=== PATIENT | female | born 1960 | race Two or more races ===

== ENCOUNTER 2020-08-01 17:28 | Outpatient (REF) | payer OTHER, SELFPAY ==
--- NOTE | 2020-08-01 | MM_ITS ---
EXAMINATION: MM SCREENING DIGITAL BREAST TOMOSYNTHESIS, BILATERAL CLINICAL INFORMATION: Screening. Asymptomatic. The lifetime risk of breast cancer based on the Tyrer-Cuzick Model is 8%. COMPARISON: Mammography: 02/04/2019, 01/22/2018, 07/11/2016 TECHNIQUE: Digital breast tomosynthesis is performed in both the craniocaudal and mediolateral oblique views along with computer-aided detection (CAD). Synthesized 2D images are generated from the tomosynthesis. FINDINGS: There are scattered areas of fibroglandular density (ACR BI-RADS breast composition Category b). There are no significant masses, abnormal calcifications, or other abnormalities. The axilla and skin contours are unremarkable. There are no significant changes from prior studies. IMPRESSION: No mammographic evidence of malignancy. ASSESSMENT: BI-RADS 1: Negative RECOMMENDATION: Routine annual mammography screening. This patient's information was entered into a reminder system with a target due date for their next mammogram.
== END 2020-08-01 17:29 | disposition home or self-care (01) ==
LOC: HO.MAMMO 17:28
DX: Z12.31 Encounter for screening mammogram for malignant neoplasm of breast (principal)
CPT/HCPCS: 77063; 77067; 78014

== ENCOUNTER 2020-12-28 09:09 | Outpatient (REF) | payer OTHER, SELFPAY ==
[2020-12-28 09:36] LABS: MANUAL DIFF FLAG NO
[2020-12-28 09:41] LABS: Basophils Percent Auto 0.4 % (0-2); Eosinophils Absolute Auto 0.1 X10*3/uL (0.0-0.4); Eosinophils Percent Auto 1.8 % (0-4); Hematocrit 37.9 % (37-47); Hemoglobin 12.2 g/dl (12.0-16.0); Imm Gran Abs Auto 0.01 X10*3/uL (0.00-0.03); Imm Gran Pct Auto 0.1 % (0.0-0.4); Lymphocytes Absolute Auto 2.6 X10*3/uL (1.2-4.9); Lymphocytes Percent Auto 37.5 % (20-40); Mean Corpuscular HGB Conc 32.2 g/dl (31.0-35.0); Mean Corpuscular Hemoglobin 28.6 pg (27.0-33.0); Mean Platelet Volume 11.2 fL (9.4-12.3); Monocytes Absolute Auto 0.4 X10*3/uL (0.1-1.2); Neutrophils Absolute Auto 3.7 X10*3/uL (2.0-8.3); Neutrophils Percent Auto 54.2 % (45-73); Platelet Count 154 X10*3/uL (160-400); Red Blood Count 4.26 X10*6/uL (4.20-5.50); Red Cell Distribution Width 13.9 % (11.0-16.0); White Blood Count 6.8 X10*3/uL (4.8-10.8)
[2020-12-28 10:09] LABS: Alanine Aminotransferase 17 U/L (0-31); Albumin Level 4.3 g/dL (3.5-5.0); Alkaline Phosphatase 101 U/L (39-117); Anion Gap 11 (12-20); Aspartate Amino Transferase 22 U/L (5-31); Blood Urea Nitrogen 16 mg/dL (9-16); Calcium 9.3 mg/dL (8.4-10.2); Carbon Dioxide 29 mmol/L (22-29); Chloride 105 mmol/L (96-108); Cholesterol 236 mg/dL; Estimated Glomerular Filt Rate > 60; Glucose Fasting 102 mg/dL (60-99); HDL Cholesterol 47 mg/dL; LDL Cholesterol Calculated 175 mg/dl; Potassium 4.2 mmol/L (3.3-5.1); Sodium 141 mmol/L (135-145); Total Protein 7.7 g/dL (6.5-8.0); Triglycerides 73 mg/dL
[2020-12-28 10:29] LABS: Thyroid Stimulating Hormone 1.29 uIU/mL (0.32-4.0)
== END 2020-12-28 09:10 | disposition home or self-care (01) ==
LOC: HO.LAB 09:09
PROVIDERS: PCP Internal Medicine; Visit Provider Internal Medicine
DX: E11.9 Type 2 diabetes mellitus without complications (principal); E03.9 Hypothyroidism, unspecified; Z00.00 Encounter for general adult medical examination without abnormal findings
CPT/HCPCS: 36415; 80053; 80061; 84443; 85025

== ENCOUNTER 2022-03-14 07:37 | Outpatient (REF) | payer OTHER, SELFPAY ==
--- NOTE | ~2022-03-14 | MM_ITS ---
EXAMINATION: MM SCREENING DIGITAL BREAST TOMOSYNTHESIS, BILATERAL CLINICAL INFORMATION: Screening. Asymptomatic. The lifetime risk of breast cancer based on the Tyrer-Cuzick Model is 6%. COMPARISON: Mammography: 08/01/2020, 02/04/2019, 01/22/2018 TECHNIQUE: Digital breast tomosynthesis is performed in both the craniocaudal and mediolateral oblique views along with computer-aided detection (CAD). Synthesized 2D images are generated from the tomosynthesis. FINDINGS: There are scattered areas of fibroglandular density (ACR BI-RADS breast composition Category b). There are no significant masses, abnormal calcifications, or other abnormalities. Parenchymal pattern is similar to prior studies. No developing density. No significant changes. MM/MM tomosynthesis screening BI IMPRESSION: No mammographic evidence of malignancy. ASSESSMENT: BI-RADS 1: Negative RECOMMENDATION: Routine annual mammography screening. This patient's information was entered into a reminder system with a target due date for their next mammogram.
== END 2022-03-14 07:38 | disposition home or self-care (01) ==
LOC: HO.MAMMO 07:37
PROVIDERS: Visit Provider Internal Medicine
DX: Z12.31 Encounter for screening mammogram for malignant neoplasm of breast (principal)
CPT/HCPCS: 77063; 77067

== ENCOUNTER 2022-05-16 08:03 | Outpatient (REF) | payer OTHER, SELFPAY ==
[2022-05-16 08:12] LABS: MANUAL DIFF FLAG NO
[2022-05-16 08:26] LABS: Basophils Percent Auto 0.4 % (0-2); Eosinophils Absolute Auto 0.2 X10*3/uL (0.0-0.4); Eosinophils Percent Auto 2.4 % (0-4); Hematocrit 39.2 % (37.0-47.0); Hemoglobin 12.5 g/dl (12.0-16.0); Imm Gran Abs Auto 0.02 X10*3/uL (0.00-0.03); Imm Gran Pct Auto 0.3 % (0.0-0.4); Lymphocytes Absolute Auto 2.6 X10*3/uL (1.2-4.9); Lymphocytes Percent Auto 37.7 % (20-40); Mean Corpuscular HGB Conc 31.9 g/dl (31.0-35.0); Mean Corpuscular Hemoglobin 28.2 pg (27.0-33.0); Mean Corpuscular Volume 88.5 fL (80.0-98.0); Mean Platelet Volume 10.8 fL (9.4-12.3); Monocytes Absolute Auto 0.5 X10*3/uL (0.1-1.2); Monocytes Percent Auto 7.3 % (2-11); Neutrophils Absolute Auto 3.6 x10*3/uL (2.0-8.3); Neutrophils Percent Auto 51.9 % (45-73); Platelet Count 160 X10*3/uL (160-400); Red Blood Count 4.43 X10*6/uL (4.20-5.50); Red Cell Distribution Width 13.5 % (11.0-16.0)
[2022-05-16 09:18] LABS: Thyroid Stimulating Hormone 2.17 uIU/mL (0.32-4.0)
[2022-05-16 09:22] LABS: Alanine Aminotransferase 16 U/L (0-31); Albumin Level 4.4 g/dL (3.5-5.0); Alkaline Phosphatase 89 U/L (39-117); Anion Gap 9 (12-20); Aspartate Amino Transferase 21 U/L (5-31); Bilirubin Total 0.9 mg/dL (0.0-1.0); Blood Urea Nitrogen 10 mg/dL (9-16); Calcium 9.4 mg/dL (8.4-10.2); Carbon Dioxide 28 mmol/L (22-29); Chloride 106 mmol/L (96-108); Cholesterol 214 mg/dL; Estimated Glomerular Filt Rate > 60; Glucose Fasting 107 mg/dL (60-99); HDL Cholesterol 49 mg/dL; LDL Cholesterol Calculated 147 mg/dl; Potassium 4.1 mmol/L (3.3-5.1); Sodium 139 mmol/L (135-145); Total Protein 7.7 g/dL (6.5-8.0); Triglycerides 94 mg/dL
== END 2022-05-16 08:04 | disposition home or self-care (01) ==
LOC: HO.LAB 08:03
PROVIDERS: PCP Internal Medicine; Visit Provider Internal Medicine
DX: Z00.00 Encounter for general adult medical examination without abnormal findings (principal); Z13.0 Encounter for screening for diseases of the blood and blood-forming organs and certain disorders involving the immune mechanism; Z13.9 Encounter for screening, unspecified
CPT/HCPCS: 36415; 80053; 80061; 84443; 85025

== ENCOUNTER 2022-05-22 15:41 | Outpatient (REF) | payer OTHER, SELFPAY ==
--- NOTE | ~2022-05-22 | US_ITS ---
EXAMINATION: US THYROID CLINICAL INFORMATION: Hypothyroidism, unspecified. COMPARISON: Thyroid ultrasound 08/01/2019. TECHNIQUE: Linear transducer grayscale and color Doppler examination with attention to the region of the thyroid. FINDINGS: SIZE: Measurements of the thyroid lobes and nodules are given in sagittal, anteroposterior and transverse dimensions respectively. Right Thyroid Lobe: 3.5 x 1.2 x 1.1 cm, volume 2.4 mL. Previously 3.3 x 1.3 x 0.9 cm, volume 2.1 mL. Parenchyma: The gland echotexture is heterogeneous. Thyroid vascularity is increased. Left Thyroid Lobe: 3.9 x 0.8 x 1.2 cm, volume 2.0 mL. Previously 3.4 x 0.7 x 1.0 cm, volume 1.2 mL. Parenchyma: The gland echotexture is heterogeneous. Thyroid vascularity is increased. Isthmus: 0.2 cm in maximum AP dimension. Previously 0.4 cm. No focal thyroid nodule is seen. NODES: No lymphadenopathy is seen in the tissue surrounding the thyroid gland. US/US thyroid IMPRESSION: Hypervascular thyroid gland with no nodules visualized. ACR TI-RADS RECOMMENDATION REFERENCE: Ultrasound-guided fine-needle aspiration, followup ultrasound, no further follow up. * TR1 (0 point) and TR 2 (2 points): No FNA or follow up * TR3 (3 points): FNA if more than or equal to 2.5 cm in maximum dimension, followup ultrasound in 1, 3 and 5 years if 1.5 to 2.4 cm in maximum dimension. * TR4 (4-6 points): FNA if more than or equal to 1.5 cm in maximum dimension, followup ultrasound in 1, 2, 3 and 5 years if 1 to 1.4 cm in maximum dimension. * TR5 (more than or equal to 7 points): FNA if more than or equal to 1 cm in maximum dimension, followup ultrasound every year for 5 years if 0.5 to 0.9 cm in maximum dimension. * TR3, TR4 or TR5 nodules that are below the size threshold for follow up receive no follow up.
== END 2022-05-22 15:42 | disposition home or self-care (01) ==
LOC: HO.US 15:41
PROVIDERS: PCP Internal Medicine; Visit Provider Internal Medicine
DX: E03.9 Hypothyroidism, unspecified (principal)
CPT/HCPCS: 76536

== ENCOUNTER 2022-10-02 08:16 | Day surgery (SDC) | payer OTHER, SELFPAY ==
--- NOTE | 2022-10-01 12:32 | P.CONAN_ITS ---
Documented by User: Gini Cason NP 10/01/22 12:33 HPI - Anesthesia Eval Consult details Narrative: 62yo F for Colonoscopy PMFSH Active Problems Active Problems: All Active Problems (Updated 04/01/22 @ 09:16 by Rajeev Zapata MD) Physical exam (Acute) Hypothyroidism (Acute) Past Medical History Medical History (Updated 04/01/22 @ 09:16 by Rajeev Zapata MD) Hypothyroidism Family History Family History (Updated 04/01/22 @ 08:45 by KAITLIN Elmore) Father No problems noted. Mother No problems noted. Surgical History Surgical History (Updated 04/01/22 @ 08:52 by KAITLIN Elmore) No pertinent past surgical history Social History Social History (Updated 04/01/22 @ 08:45 by KAITLIN Elmore) Housing: House Alcohol intake: never Patient Tobacco Use Status: Never used Tobacco e-Cigarette/Vaping Use: Never Used Second Hand Smoke Exposure: No Use of substances other than those prescribed or required for medical reasons: No Advance Directives: No Advance Directives Information Provided: Yes service: No Current occupational status: employed Current occupation: [employer] Director Cognitive needs: No Hearing needs: No Vision needs: Yes (glasses) Meds Allergies Allergy/AdvReac Type Severity Reaction Status Date / Time No Known Allergies Allergy Unknown UNKNOWN Verified 04/01/22 08:46 [NO KNOWN ALLERGIES] Home Medications Medication Instructions Recorded Confirmed Last Taken Type ferrous sulfate 325 mg (65 mg 325 mg PO DAILY 04/01/22 04/01/22 Unknown History iron) tablet (Feosol) Exam Exam Date and Time: October 01, 2022 1232 Pertinent Lab Results Pertinent Lab Results: Laboratory Tests 05/16/22 05/16/22 08:10 08:10 WBC 7.0 Hgb 12.5 Hct 39.2 Plt Count 160 Sodium 139 Potassium 4.1 Chloride 106 Carbon Dioxide 28 BUN 10 Creatinine 0.90 Assessment and Plan Assessment Anesthesia Assessment: Chart Reviewed Documented by User: Janae Haines MD 10/02/22 10:45 PMFSH Past Medical History Medical History (Updated 04/01/22 @ 09:16 by Rajeev Zapata MD) Hypothyroidism Family History Family History (Updated 04/01/22 @ 08:45 by KAITLIN Elmore) Father No problems noted. Mother No problems noted. Family history of problems with anesthesia: No Surgical History Surgical History (Updated 04/01/22 @ 08:52 by KAITLIN Elmore) No pertinent past surgical history History of Problems with Anesthesia: No Social History Social History (Updated 04/01/22 @ 08:45 by KAITLIN Elmore) Housing: House Alcohol intake: never Patient Tobacco Use Status: Never used Tobacco e-Cigarette/Vaping Use: Never Used Second Hand Smoke Exposure: No Use of substances other than those prescribed or required for medical reasons: No Advance Directives: No Advance Directives Information Provided: Yes service: No Current occupational status: employed Current occupation: [employer] Cognitive needs: No Hearing needs: No Vision needs: Yes (glasses) Meds Allergies Allergy/AdvReac Type Severity Reaction Status Date / Time No Known Allergies Allergy Unknown UNKNOWN Verified 04/01/22 08:46 [NO KNOWN ALLERGIES] Home Medications Medication Instructions Recorded Confirmed Last Taken Type ferrous sulfate 325 mg (65 mg 325 mg PO DAILY 04/01/22 04/01/22 Unknown History iron) tablet (Feosol) Exam Airway Mallampati Class: I TM Dist: >3cm Neck ROM: Full Loose/Missing/Broken Teeth: No Heart: rrr Lungs: cta Assessment and Plan Assessment Anesthesia Assessment: Anesthesia Plan Discussed Final Anesthetic Review Family History of Problems with Anesthesia: No History of Problems with Anesthesia: No NPO: Yes ASA Class: II Final Preanesthetic Review: No Changes in Pt Med Stat Patient Risk: Low Procedure Risk: Low Anesthetic Plan Anesthetic Plan: MAC: Disposition: Standard PACU
[2022-10-02 09:04] VITALS: BP 121/81; PULSE 66; RESP 16; TEMP 36.7; O2SAT 99; BMI 20.3
--- NOTE | 2022-10-02 10:40 | PM.OP ---
Brief Operative Note Date of Service: 10/02/22 Pre-op diagnosis: Screening Post-op diagnosis: other (Diverticulosis) Procedure: Colonoscopy to the cecum and TI Surgeon: Carlos Gibbons Anesthesia: MAC Was an Director Of Nuclear Medicine used for this Procedure?: No Estimated blood loss (mL): 0 Pathology: none sent Condition: stable Disposition: PACU
[2022-10-02 10:41] VITALS: BP 115/73; PULSE 58; RESP 18; TEMP 36.4; O2SAT 100
[2022-10-02 10:56] VITALS: BP 129/73; PULSE 66; RESP 18; TEMP 36.2; O2SAT 100
--- NOTE | 2022-10-02 11:13 | OP_ITS ---
SURGEON: Carlos Gibbons MD INDICATIONS: The patient presents for evaluation of colorectal cancer screening. Full consent has been obtained from her for this, including risks of bleeding and perforation. PREOPERATIVE DIAGNOSIS: Colorectal cancer screening. POSTOPERATIVE DIAGNOSIS: PROCEDURE PERFORMED: Colonoscopy to the cecum and terminal ileum. ESTIMATED BLOOD LOSS: COMPLICATIONS: ANESTHESIA: Monitored anesthesia care. ASSISTANTS: SPECIMENS: POSTOPERATIVE DIAGNOSES: Colorectal cancer screening, mild sigmoid diverticulosis, and small internal hemorrhoids. DESCRIPTION OF PROCEDURE: The patient was placed in the left lateral decubitus position the digital rectal exam revealed no abnormalities. The Olympus video pediatric colonoscope was entered into the rectum and advanced easily to the cecum. Once in the cecum, I did identify a normal-appearing cecal pouch with appendiceal orifice and a normal-appearing ileocecal valve. The terminal ileum was cannulated and appeared normal. The scope was withdrawn back in the colon. The entire cecum and ileocecal valve appeared normal. The scope was slowly withdrawn assessing all mucosal surfaces carefully. Preparation was excellent. I did not visualize any sign of polyps, colitis, nor angiodysplasia. There was a mild amount of sigmoid diverticulosis. In the rectum, scope was retroflexed visualizing small internal hemorrhoids, but no other pathology. The rectal mucosa appeared normal. The scope was straightened and withdrawn from the patient. She tolerated the procedure well and was returned to the recovery area in stable condition. IMPRESSION: 1. Mild sigmoid diverticulosis. 2. Small internal hemorrhoids. PLAN: Given today's negative exam and no family history of colon cancer, I would recommend a followup coloscopy in 10 years. She will otherwise see me on a p.r.n. basis. She was advised that she could resume her aspirin and iron today. MD ORLANDO Deras/ALEX / [id number]
== END 2022-10-02 11:33 | disposition home or self-care (01) ==
PROVIDERS: PCP Internal Medicine; Visit Provider Internal Medicine
PROC: 0DJD8ZZ Inspection of Lower Intestinal Tract, Via Natural or Artificial Opening Endoscopic (ICD-10-PCS; CPT 45378; principal; 2022-10-02 09:30)
DX: Z12.11 Encounter for screening for malignant neoplasm of colon (principal); K57.30 Diverticulosis of large intestine without perforation or abscess without bleeding; K64.8 Other hemorrhoids; E03.9 Hypothyroidism, unspecified; Z79.82 Long term (current) use of aspirin; Z79.899 Other long term (current) drug therapy
CPT/HCPCS: 45378

== ENCOUNTER 2023-03-20 10:02 | Outpatient (REF) | payer OTHER, SELFPAY ==
--- NOTE | ~2023-03-20 | MM_ITS ---
EXAMINATION: MM SCREENING DIGITAL BREAST TOMOSYNTHESIS, BILATERAL CLINICAL INFORMATION: Screening. Asymptomatic. The lifetime risk of breast cancer based on the Tyrer-Cuzick Model is 5%. COMPARISON: Multiple prior mammography exams including most recent 03/14/2022. TECHNIQUE: Digital breast tomosynthesis is performed in both the craniocaudal and mediolateral oblique views along with computer-aided detection (CAD). Synthesized 2D images are generated from the tomosynthesis. FINDINGS: There are scattered areas of fibroglandular density (ACR BI-RADS breast composition Category b). Left breast parenchymal pattern is similar to prior studies. There is no developing density or interval mass or architectural abnormality. Neither breast shows abnormal calcifications. The axilla and skin contours are unremarkable. Right MLO view has a 4 mm smooth nodular asymmetric density at the posterior nipple line 7 cm from nipple. This is at mid tomography sac on MLO projection. Finding not seen with certainty on prior exams. Patient will be recalled for additional imaging. MM/MM tomosynthesis screening BI IMPRESSION: Right: -Small nodular asymmetric density 7 cm from nipple along posterior nipple line on MLO view. Left: -No mammographic evidence of malignancy. ASSESSMENT: BI-RADS 0: Incomplete - Need Additional Imaging Evaluation RECOMMENDATION: 1. Additional views right breast (CC posterior, spot MLO). 2. Targeted ultrasound if warranted after review of the additional views. 3. Radiology department staff will contact the patient for additional imaging. This patient's information was entered into a reminder system with a target due date for their next mammogram.
== END 2023-03-20 10:03 | disposition home or self-care (01) ==
LOC: HO.MAMMO 10:02
PROVIDERS: PCP Internal Medicine; Visit Provider Internal Medicine
DX: Z12.31 Encounter for screening mammogram for malignant neoplasm of breast (principal)
CPT/HCPCS: 77063; 77067

== ENCOUNTER 2023-04-01 10:53 | Outpatient (REF) | payer OTHER, SELFPAY ==
--- NOTE | ~2023-04-01 | MM_ITS ---
EXAMINATION: MM DIAGNOSTIC DIGITAL BREAST TOMOSYNTHESIS, RIGHT US DIAGNOSTIC ULTRASOUND BREAST, RIGHT CLINICAL INFORMATION: Recall from screening for small nodular asymmetric density 7 cm from nipple along posterior nipple line on MLO view. COMPARISON: Multiple prior mammography exams including most recent 03/20/2023. TECHNIQUE: Digital breast tomosynthesis is performed. 2D images are generated from the tomosynthesis. The following views are obtained: CC, exaggerated CC, MLO x2, spot MLO. Ultrasound right breast is targeted to the posterior breast, interrogated from all 4 quadrants using grayscale imaging and color Doppler without and with harmonics. FINDINGS: There are scattered areas of fibroglandular density (ACR BI-RADS breast composition Category b). The nodular asymmetry is demonstrated on the spot MLO view showing smooth margins, 0.4 cm, and 7 cm along the posterior nipple line. Finding not seen with complete certainty on the CC or exaggerated CC views. No architectural abnormality. Ultrasound demonstrates a tiny cyst just under 4 mm 2:00 position 7 cm from nipple overlying the chest wall. There is mild increased through-transmission of sound. No associated color flow. The cyst may correspond to the finding on tomography. Results are discussed with the patient at time of visit. The additional views show smooth nodular asymmetry only 4 mm with benign-appearing smooth margins. The ultrasound demonstrates a tiny cyst of similar size possibly corresponding to the mammography, at least close to the vicinity. As a precaution, short interval follow-up right mammography will be requested. MM/MM tomosynthesis added views R IMPRESSION: -Tiny cyst posterior 2:00 position right breast possibly corresponding to the smooth nodular asymmetry on mammography. ASSESSMENT: BI-RADS 3: Probably Benign RECOMMENDATION: Diagnostic right mammography in 6 months. This patient's information was entered into a reminder system with a target due date for their next mammogram.
== END 2023-04-01 10:54 | disposition home or self-care (01) ==
LOC: HO.MAMMO 10:53
PROVIDERS: PCP Internal Medicine; Visit Provider Internal Medicine
DX: R92.2 Inconclusive mammogram (principal)
CPT/HCPCS: 76642; 77061; 77065

== ENCOUNTER 2023-04-27 09:18 | Outpatient (REF) | payer OTHER, SELFPAY ==
--- NOTE | ~2023-04-27 | US_ITS ---
EXAMINATION: US THYROID CLINICAL INFORMATION: Hypothyroidism. COMPARISON: Ultrasound thyroid 05/22/2022 and 08/01/2019. TECHNIQUE: Linear transducer grayscale and color Doppler examination with attention to the region of the thyroid. FINDINGS: SIZE: Measurements of the thyroid lobes and nodules are given in sagittal, anteroposterior and transverse dimensions respectively. Right Thyroid Lobe: 3.4 x 1.5 x 1.1 cm, volume 2.8 mL. Previously 3.5 x 1.2 x 1.1 cm, volume 2.4 mL. Parenchyma: The gland echotexture is heterogeneous. Thyroid vascularity is normal. Left Thyroid Lobe: 3.2 x 0.8 x 0.9 cm, volume 1.2 mL. Previously 3.9 x 0.8 x 1.2 cm, volume 2.0 mL. Parenchyma: The gland echotexture is heterogeneous. Thyroid vascularity is normal. Isthmus: 0.3 cm in maximum AP dimension. Previously 0.2 cm. No focal thyroid nodule is seen. NODES: No lymphadenopathy is seen in the tissue surrounding the thyroid gland. US/US thyroid IMPRESSION: Heterogeneous thyroid which can be seen in the setting of thyroiditis. ACR TI-RADS RECOMMENDATION REFERENCE: Ultrasound-guided fine-needle aspiration, followup ultrasound, no further follow up. * TR1 (0 point) and TR2 (2 points): No FNA or follow up. * TR3 (3 points): FNA if more than or equal to 2.5 cm in maximum dimension, followup ultrasound in 1, 3 and 5 years if 1.5 to 2.4 cm in maximum dimension. * TR4 (4-6 points): FNA if more than or equal to 1.5 cm in maximum dimension, followup ultrasound in 1, 2, 3 and 5 years if 1 to 1.4 cm in maximum dimension. * TR5 (more than or equal to 7 points): FNA if more than or equal to 1 cm in maximum dimension, followup ultrasound every year for 5 years if 0.5 to 0.9 cm in maximum dimension. * TR3, TR4 or TR5 nodules that are below the size threshold for followup receive no follow up.
== END 2023-04-27 09:19 | disposition home or self-care (01) ==
LOC: HO.US 09:18
PROVIDERS: Visit Provider Internal Medicine
DX: E07.89 Other specified disorders of thyroid (principal)
CPT/HCPCS: 76536

== ENCOUNTER 2023-09-27 08:45 | Outpatient (REF) | payer OTHER, SELFPAY ==
--- NOTE | ~2023-09-27 | MM_ITS ---
EXAMINATION: MM DIAGNOSTIC DIGITAL BREAST TOMOSYNTHESIS, RIGHT CLINICAL INFORMATION: Evaluate tiny nodular asymmetry demonstrated on the MLO view only along the posterior nipple line measuring 4 mm, correlating with simple cyst on prior ultrasound 04/01/2023. COMPARISON: Mammography: 04/01/2023. Priors dating back to 2018. TECHNIQUE: Digital right breast tomosynthesis is performed in both the craniocaudal and mediolateral oblique views along with computer-aided detection (CAD). Synthesized 2D images are generated from the tomosynthesis. In addition to standard views, a second MLO view was performed with more posterior tissue viewing. FINDINGS: There are scattered areas of fibroglandular density (ACR BI-RADS breast composition Category b). There is a stable 4 mm nodule in the posterior right breast just overlying the pectoralis muscle along the nipple line, (2:00 axis, 7 cm from the nipple) only seen on the MLO projection, stable, and known to represent a simple cyst on ultrasound. There is been no change. This is benign. There are otherwise no changes or suspicious findings in the right breast. MM/MM tomosynthesis diagnostic RT IMPRESSION: There are no significant changes from prior study. Stable benign 4 mm cyst posterior right breast. No further follow-up warranted. Recommend the patient return to routine screening mammography. ASSESSMENT: BI-RADS BI-RADS 2 - Benign Findings RECOMMENDATION: 1 year F/U Results were provided to the patient at time of visit by the technologist. This patient's information was entered into a reminder system with a target due date for their next mammogram.
== END 2023-09-27 08:46 | disposition home or self-care (01) ==
LOC: HO.MAMMO 08:45
PROVIDERS: PCP Internal Medicine; Visit Provider Internal Medicine
DX: N63.12 Unspecified lump in the right breast, upper inner quadrant (principal)
CPT/HCPCS: 77061; 77065

== ENCOUNTER → 2023-09-27 09:00 | Outpatient (BNV) | payer OTHER, SELFPAY | PROVIDERS: PCP Internal Medicine; Visit Provider Radiology Diagnostic Radiology | DX: N60.01 Solitary cyst of right breast (principal) | CPT/HCPCS: 77061; 77065 ==

== ENCOUNTER 2023-10-09 08:25 | Outpatient (REF) | payer OTHER, SELFPAY ==
[2023-10-09 08:42] LABS: MANUAL DIFF FLAG NO
[2023-10-09 08:51] LABS: Basophils Percent Auto 0.3 % (0-2); Eosinophils Absolute Auto 0.1 X10*3/uL (0.0-0.4); Eosinophils Percent Auto 1.3 % (0-4); Hematocrit 39.5 % (37.0-47.0); Hemoglobin 12.8 g/dl (12.0-16.0); Imm Gran Abs Auto 0.02 X10*3/uL (0.00-0.03); Imm Gran Pct Auto 0.3 % (0.0-0.4); Lymphocytes Absolute Auto 2.2 X10*3/uL (1.2-4.9); Lymphocytes Percent Auto 36.8 % (20-40); Mean Corpuscular HGB Conc 32.4 g/dl (31.0-35.0); Mean Corpuscular Hemoglobin 28.8 pg (27.0-33.0); Mean Corpuscular Volume 88.8 fL (80.0-98.0); Monocytes Absolute Auto 0.4 X10*3/uL (0.1-1.2); Monocytes Percent Auto 6.2 % (2-11); Neutrophils Absolute Auto 3.4 x10*3/uL (2.0-8.3); Neutrophils Percent Auto 55.1 % (45-73); Platelet Count 157 X10*3/uL (160-400); Red Blood Count 4.45 X10*6/uL (4.20-5.50); Red Cell Distribution Width 13.4 % (11.0-16.0); White Blood Count 6.1 X10*3/uL (4.8-10.8)
[2023-10-09 09:30] LABS: Alanine Aminotransferase 22 U/L (0-31); Albumin Level 4.1 g/dL (3.5-5.0); Alkaline Phosphatase 99 U/L (39-117); Anion Gap 13 (12-20); Aspartate Amino Transferase 26 U/L (5-31); Bilirubin Total 0.9 mg/dL (0.0-1.0); Blood Urea Nitrogen 15 mg/dL (9-16); Calcium 9.6 mg/dL (8.4-10.2); Carbon Dioxide 26 mmol/L (22-29); Chloride 107 mmol/L (96-108); Cholesterol 252 mg/dL (<200); Estimated Glomerular Filt Rate > 60; Glucose Fasting 101 mg/dL (60-99); HDL Cholesterol 49 mg/dL (>40); Iron 71 mcg/dL (30-160); LDL Cholesterol Calculated 188 mg/dL (<100); Percent Iron Saturation 26 % (15-50); Potassium 3.9 mmol/L (3.3-5.1); Sodium 142 mmol/L (135-145); Total Iron Binding Capacity 276 mcg/dL (228-428); Total Protein 7.8 g/dL (6.5-8.0); Triglycerides 78 mg/dL (<150); Unsaturated Iron Binding 205 ug/dL
[2023-10-09 09:47] LABS: Thyroid Stimulating Hormone 2.44 uIU/mL (0.32-4.0)
== END 2023-10-09 08:26 | disposition home or self-care (01) ==
LOC: HO.LAB 08:25
PROVIDERS: PCP Internal Medicine; Visit Provider Internal Medicine
DX: D64.9 Anemia, unspecified (principal); E78.5 Hyperlipidemia, unspecified; E03.9 Hypothyroidism, unspecified; N28.9 Disorder of kidney and ureter, unspecified; E66.1 Drug-induced obesity
CPT/HCPCS: 36415; 80053; 80061; 83540; 84443; 85025

== ENCOUNTER 2024-03-26 07:42 | Emergency (ER) | payer OTHER, SELFPAY ==
--- NOTE | ~2024-03-26 | US_ITS ---
EXAMINATION: US ABDOMEN LIMITED CLINICAL INFORMATION: Right upper quadrant pain elevated LFTs COMPARISON: CT abdomen from 03/26/2024 TECHNIQUE: Real-time imaging of the right upper quadrant abdominal viscera. FINDINGS: PANCREAS: Normal. LIVER: Normal. The liver is normal in size. The liver contour is normal. Parenchymal echogenicity is normal. No focal hepatic lesion. There is no intrahepatic biliary duct dilatation seen. GALLBLADDER: Gallbladder is contracted limiting evaluation. Sonographic Ramírez sign is negative. COMMON BILE DUCT: Normal in caliber measuring 0.2 cm in diameter. RIGHT KIDNEY: Normal. No hydronephrosis. No renal calculi or focal parenchymal lesions. The kidney measures 9.6 cm in maximum dimension. FREE FLUID: None. US/US abdomen limited IMPRESSION: 1. Gallbladder is contracted limiting evaluation. 2. Otherwise unremarkable right upper quadrant ultrasound.
--- NOTE | ~2024-03-26 | CT_ITS ---
EXAMINATION: CT abdomen pelvis w IV con CLINICAL INFORMATION: Reason for Exam abd pain, ?choledocholithiasis COMPARISON: 2017 TECHNIQUE: Multidetector volumetric imaging was performed from the superior aspect of the liver through the pubic symphysis 85 mL Omnipaque 350 injected Sagittal and coronal reformatted images were obtained on the technologist's workstation. This CT examination was performed using dose optimization techniques as appropriate, variously including the following: *Automated exposure control *Adjustment of mA and/or kV according to patient size (this includes techniques or standardized protocols for targeted exams where dose is matched to indication/reason for exam; i.e. extremities or head) *Use of iterative reconstruction technique DLP: 306 mGy-cm FINDINGS: LOWER THORAX: Included lung bases are clear. HEPATOBILIARY: No focal hepatic lesions. No biliary ductal dilatation. GALLBLADDER: Gallbladder unremarkable. SPLEEN: Spleen is normal in size. PANCREAS: No focal mass or ductal dilatation. STOMACH AND GASTROINTESTINAL TRACT: Stomach is grossly unremarkable. There is no bowel distention or thickening. There is fat stranding surrounding the sigmoid colon, this is on the basis of underlying diverticulosis, the CT appearance of which is compatible with ACUTE DIVERTICULITIS. Cannot rule out underlying pathologic process infiltrating neoplasm. At this time there is no evidence of complication, no localized fluid collection or abscess formation. Scott image marked. ADRENALS: No adrenal nodules. KIDNEYS/URETERS: Small left renal cyst Bosniak class I likely benign no follow-up recommended measure 1.1 cm. Perinephric fat are clear. No hydronephrosis. URINARY BLADDER: Partially decompressed. PELVIC VISCERA: Engorgement of the pelvic and adnexal veins suggesting possibly pelvic congestion syndrome. PERITONEUM: No free air or fluid. LYMPH NODES: No lymphadenopathy. VASCULAR:Abdominal aorta normal in size, no aneurysm found. BONES, ABDOMINAL WALL AND SOFT TISSUES: Age-appropriate changes of the spine and skeletal system, no destructive osteolytic or osteosclerotic bone lesion found CT/CT abdomen pelvis w IV con IMPRESSION: 1. There is fat stranding surrounding the sigmoid colon, this is on the basis of underlying diverticulosis, the CT appearance of which is compatible with ACUTE DIVERTICULITIS. Cannot rule out underlying pathologic process infiltrating neoplasm. At this time there is no evidence of complication, no localized fluid collection or abscess formation. Scott image marked. Attention to follow-up imaging CT scan or colonoscopy, few months after resolution of the symptoms recommended to ensure complete clearance and exclude pathology. 2. Engorgement of the pelvic and adnexal veins suggesting possibly pelvic congestion syndrome. (Referring physician staff is being called, by physician staff assistance, to be alerted of the above critical findings and recommendations.) 03/26/2024 1:45 PM BRETT
[2024-03-26 08:22] VITALS: BP 140/85; PULSE 78; RESP 18; TEMP 37.1; O2SAT 99; BMI 19.9
[2024-03-26 09:18] LABS: MANUAL DIFF FLAG NO
[2024-03-26 09:25] LABS: Basophils Percent Auto 0.3 % (0-2); Eosinophils Percent Auto 0.4 % (0-4); Hematocrit 37.3 % (37.0-47.0); Hemoglobin 12.5 g/dl (12.0-16.0); Imm Gran Abs Auto 0.03 X10*3/uL (0.00-0.03); Imm Gran Pct Auto 0.3 % (0.0-0.4); Lymphocytes Absolute Auto 1.1 X10*3/uL (1.2-4.9); Lymphocytes Percent Auto 10.9 % (20-40); Mean Corpuscular HGB Conc 33.5 g/dl (31.0-35.0); Mean Corpuscular Hemoglobin 29.7 pg (27.0-33.0); Mean Corpuscular Volume 88.6 fL (80.0-98.0); Mean Platelet Volume 10.7 fL (9.4-12.3); Monocytes Absolute Auto 0.6 X10*3/uL (0.1-1.2); Monocytes Percent Auto 5.6 % (2-11); Neutrophils Absolute Auto 8.4 x10*3/uL (2.0-8.3); Neutrophils Percent Auto 82.5 % (45-73); Platelet Count 137 X10*3/uL (160-400); Red Blood Count 4.21 X10*6/uL (4.20-5.50); Red Cell Distribution Width 14.1 % (11.0-16.0); White Blood Count 10.2 X10*3/uL (4.8-10.8)
[2024-03-26 09:26] LABS: Appearance Urine Clear; Color Urine Yellow; Glucose Urine UA Negative (Negative); Leukocyte Esterase Urine Small (1+) (Negative); Nitrite Urine Negative (Negative); Specific Gravity - Urine 1.025 (1.005-1.025); UMIC TRIGGER UACC YES; Urine Blood Small (1+) (Negative); Urine Ketones Negative (Negative); Urine Protein 30 (1+) mg/dL (Neg-Trace)
[2024-03-26 09:31] LABS: Bacteria Urine None Seen (None Seen); Hyaline Casts Urine 0-2 /LPF (0-2); UACC Culture Trigger YES
[2024-03-26 09:40] LABS: Alanine Aminotransferase 154 U/L (0-31); Alkaline Phosphatase 167 U/L (39-117); Anion Gap 12 (12-20); Aspartate Amino Transferase 123 U/L (5-31); Bilirubin Total 1.2 mg/dL (0.0-1.0); Blood Urea Nitrogen 9 mg/dL (9-16); Calcium 9.7 mg/dL (8.4-10.2); Carbon Dioxide 27 mmol/L (22-29); Chloride 106 mmol/L (96-108); Creatinine Clr Calc Pharmacy 56.4; Estimated Glomerular Filt Rate > 60; Glucose Random 142 mg/dL (60-115); Potassium 4.7 mmol/L (3.3-5.1); Sodium 140 mmol/L (135-145)
[2024-03-26 09:42] LABS: Lipase 18 U/L (8-78)
[2024-03-26 11:42] VITALS: BP 143/78; PULSE 73; RESP 16; TEMP 36.6; O2SAT 99
--- NOTE | 2024-03-26 11:59 | ED_ITS ---
HPI - Abdominal Pain General Chief Complaint: Abdominal Pain Stated Complaint: Lower back pain, abd pain Time Seen by Provider: 03/26/24 11:41 Source: patient Mode of arrival: ambulatory History of Present Illness ED Provider: Dr Aguirre HPI narrative: 63-year-old female with history of thyroid dysfunction, anemia who presents with complaints of right-sided abdominal discomfort which started Wednesday evening, is not been associated with any fever but reports chills and likewise there is no complaints of urinary symptoms and no nausea or vomiting. Related Data Home Medications ?Medication ?Instructions ?Recorded ?Confirmed ferrous sulfate 325 mg (65 mg 325 mg PO DAILY 04/01/22 04/02/23 iron) tablet (Feosol) Previous Rx's ?Medication ?Instructions ?Recorded aspirin 81 mg chewable tablet 1 tab PO DAILY #90 tabs 05/24/23 levothyroxine 75 mcg tablet 75 mcg PO DAILY #90 tabs 07/02/23 Allergies Allergy/AdvReac Type Severity Reaction Status Date / Time No Known Allergies Allergy Unknown UNKNOWN Verified 03/26/24 08:25 [NO KNOWN ALLERGIES] Review of Systems Review of Systems Pertinent positives and negatives as stated in HPI [facility] Past Medical History Source: nursing notes reviewed Medical History Hypothyroidism Surgical History No pertinent past surgical history Family History Family History Father No problems noted. Mother No problems noted. Social History Social History Housing: House Alcohol intake: never Patient Tobacco Use Status: Never used Tobacco Smoked in Last 30 Days: No e-Cigarette/Vaping Use: Never Used Second Hand Smoke Exposure: No Use of substances other than those prescribed or required for medical reasons: No Advance Directives: No Advance Directives Information Provided: No Do you have a plan to hurt others: No Plan service: No Current occupational status: employed Current occupation: [employer] Director Cognitive needs: No Hearing needs: No Vision needs: Yes (glasses) Physical Exam ED Vital Signs: Vital Signs - 24 hr 03/26/24 08:22 03/26/24 11:42 Temperature 98.7 F 97.8 F Pulse Rate 78 73 Respiratory Rate 18 16 Blood Pressure 140/85 H 143/78 H Pulse Oximetry 99 99 Oxygen Delivery Method Room Air Room Air BMI result Body Mass Index 19.9 VITAL SIGNS: Reviewed. GENERAL: Well developed, well nourished, in no acute distress. HEAD: Normocephalic/atraumatic EYES: PERRLA, EOMI LUNGS: Normal breath sounds. No adventitious sounds or accessory muscle use. SpO2<99> CARDIOVASCULAR: Regular rate and rhythm without noted murmurs ABDOMEN: Soft, right-sided abdominal discomfort maximal at right upper quadrant, no rebound, non-distended with bowel sounds. MUSCULOSKELETAL: No tenderness, deformities, or effusions noted on gross inspection. EXTREMITIES: No cyanosis, clubbing or edema. SKIN: Inspection of the skin reveals no rashes NEUROLOGIC: Alert and oriented x 4. Strength and sensation to light touch were grossly intact x 4. Medical Decision Making Medical Decision Making [facility] Narrative: 1201: 63-year-old female with history and clinical presentation, DDX: Cholecystitis, pancreatitis, diverticulitis, urinary tract infection, renal colic. I reviewed all investigations and hematologic indices are negative for leukocytosis/anemia/but chronically stable thrombocytopenia. Chemistry indices do not demonstrate any TERESSA or electrolyte derangements but patient has noted elevated LFTs with some right upper quadrant discomfort, CT scan does not describe any hepatobiliary derangements but does identify evidence to suggest diverticulitis. Patient does not describe any diarrhea or nausea or vomiting. She is afebrile without leukocytosis. Patient will receive initial antibiotics for the diverticulitis but given the significant change in liver enzymes although may be attributable to medication will proceed with limited ultrasound of the right upper quadrant to evaluate the gallbladder, despite CT scan not identifying any hepatobiliary, specifically gallbladder, abnormalities. Patient received Toradol for pain control and has had significant reduction in pain, ultrasound of the right upper quadrant does not demonstrate any evidence to suggest acute cholecystitis and recommend that patient follow-up with her primary care doctor for re-evaluation liver enzymes. Differential Diagnosis Differential Diagnoses: The differential diagnosis associated with the presentation includes Please see the discussion above Admission/Observation Consideration of admission/observation: Escalation of care including admission/observation considered Please see the discussion above Lab Data [facility] Lab Attestation statement: I reviewed the patient's lab results. Please see the discussion above 03/26/24 09:15 03/26/24 09:15 Labs: Lab Results 03/26/24 03/26/24 Range/Units 09:15 09:20 WBC 10.2 (4.8-10.8) X10*3/uL RBC 4.21 (4.20-5.50) X10*6/uL Hgb 12.5 (12.0-16.0) g/dl Hct 37.3 (37.0-47.0) % MCV 88.6 (80.0-98.0) fL MCH 29.7 (27.0-33.0) pg MCHC 33.5 (31.0-35.0) g/dl RDW 14.1 (11.0-16.0) % Plt Count 137 L (160-400) X10*3/uL MPV 10.7 (9.4-12.3) fL Immature Gran % (Auto) 0.3 (0.0-0.4) % Neut % (Auto) 82.5 H (45-73) % Lymph % (Auto) 10.9 L (20-40) % [place] % (Auto) 5.6 (2-11) % Eos % (Auto) 0.4 (0-4) % Baso % (Auto) 0.3 (0-2) % Lymph # (Auto) 1.1 L (1.2-4.9) X10*3/uL [place] # (Auto) 0.6 (0.1-1.2) X10*3/uL Eos # (Auto) 0.0 (0.0-0.4) X10*3/uL Baso # (Auto) 0.0 (0.0-0.2) X10*3/uL Abs Immat Gran (auto) 0.03 (0.00-0.03) X10*3/uL Absolute Neuts (auto) 8.4 H (2.0-8.3) x10*3/uL Absolute Nucleated RBC 0.000 (0.0-0.012) X10*3/uL Nucleated RBC % (auto) 0.0 (0.0-0.2) /100WBC Sodium 140 (135-145) mmol/L Potassium 4.7 (3.3-5.1) mmol/L Chloride 106 (96-108) mmol/L Carbon Dioxide 27 (22-29) mmol/L Anion Gap 12 (12-20) BUN 9 (9-16) mg/dL Creatinine 0.81 (0.5-1.4) mg/dL Estim Creat Clear Calc 56.4 Estimated GFR > 60 Random Glucose 142 H (60-115) mg/dL Calcium 9.7 (8.4-10.2) mg/dL Total Bilirubin 1.2 H (0.0-1.0) mg/dL AST 123 H (5-31) U/L ALT 154 H (0-31) U/L Alkaline Phosphatase 167 H (39-117) U/L Total Protein 8.0 (6.5-8.0) g/dL Albumin 4.0 (3.5-5.0) g/dL Lipase 18 (8-78) U/L Urine Color Yellow Urine Appearance Clear Urine pH 6.0 (5.0-9.0) Ur Specific Bishop 1.025 (1.005-1.025) Urine Protein 30 (1+) H (Neg-Trace) mg/dL Urine Glucose (UA) Negative (Negative) mg/dL Urine Ketones Negative (Negative) mg/dL Urine Blood Small (1+) H (Negative) Urine Nitrite Negative (Negative) Ur Leukocyte Esterase Small (1+) H (Negative) Urine RBC 11-20 H (0-2) /HPF Urine WBC 6-10 H (0-5) /HPF Ur Squamous Epith Cells 3-5 (0-2) /HPF Urine Bacteria None Seen (None Seen) Hyaline Casts 0-2 (0-2) /LPF Radiology Impression Discussion of test interpretation with radiology: I have reviewed the radiologist's reading. Radiologist Impression: Please see the discussion above External Record Review External record reviewed: Outpatient record, Prior outpatient labs and Prior outpatient radiology Medications Administered Discontinued Medications Generic Name Dose Route Start Last Admin Trade Name Freq PRN Reason Stop Dose Admin Amoxicillin/Clavulanate Potassium 875 mg 03/26/24 14:13 03/26/24 14:50 Amoxicillin/Potassium Clav 875 Mg Tablet PO 03/26/24 14:14 875 mg ONCE ONE Administration Iohexol 100 ml 03/26/24 12:43 03/26/24 12:44 Iohexol 350 Mg/Ml 100 Ml Infus..Btl IV 03/26/24 12:44 85 ml ONCE ONE Administration Ketorolac Tromethamine 15 mg 03/26/24 15:07 03/26/24 15:21 Ketorolac Tromethamine 30 Mg/Ml Vial IVPUSH 03/26/24 15:08 15 mg ONCE ONE Administration Critical Care Time Critical Care Time Critical Care Time: Yes Total Critical Care Time: 30 Attestation: I personally attest to this time spent taking care of the patient. Discharge Plan Discharge Clinical Impression: Diverticulitis Patient Disposition: Home, Self-Care Instructions: Diverticulitis (ED), Diverticulitis Diet (ED) Additional Instructions: 1. Complete the entire course of antibiotics as prescribed. 2. Please follow-up with your primary care doctor on Wednesday/, you will need to repeat liver enzyme testing. Return to the ER if you have no improvement in symptoms, you can use Tylenol ibuprofen as needed for pain control. Prescriptions: No Action aspirin 81 mg tablet,chewable 1 tab PO DAILY Qty: 90 8RF levothyroxine 75 mcg tablet 75 mcg PO DAILY Qty: 90 7RF ferrous sulfate [Feosol] 325 mg (65 mg iron) tablet 325 mg PO DAILY Referrals: Rajeev Zapata MD [Primary Care Provider] - Print Language: Ukrainian
[2024-03-26] MEDS: iohexoL 350 MG/ML 100 ML INFUS..BTL IV (12:44)
[2024-03-26] MEDS: Amoxicillin/Potassium Clav 875 MG TABLET PO (14:50)
[2024-03-26] MEDS: Ketorolac Tromethamine 30 MG/ML VIAL 15 MG IVPUSH (15:21)
[2024-03-26 17:23] VITALS: BP 147/83; PULSE 69; RESP 14; TEMP 36.7; O2SAT 98
== END 2024-03-26 17:24 | disposition home or self-care (01) ==
PROVIDERS: Emergency Provider Student in an Organized Health Care Education/Training Program; PCP Internal Medicine
DX: K57.32 Diverticulitis of large intestine without perforation or abscess without bleeding (principal); R10.11 Right upper quadrant pain; E03.9 Hypothyroidism, unspecified; D64.9 Anemia, unspecified; Z79.82 Long term (current) use of aspirin; Z79.899 Other long term (current) drug therapy
CPT/HCPCS: 36415; 74177; 76705; 80053; 81001; 83690; 85025; 87086; 96374; 99284; J1885; Q9967

== ENCOUNTER 2024-04-20 13:37 | Outpatient (AMB) | payer OTHER, SELFPAY ==
[2024-04-20 13:47] VITALS: BP 130/64; PULSE 63; O2SAT 100; BMI 20.2
--- NOTE | 2024-04-20 13:47 | MHC.PC.OV ---
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 per policy Accompanied by: Self / Same As Patient Allergies No Known Allergies [NO KNOWN ALLERGIES] Allergy (Unknown, Verified 04/20/24 13:47) UNKNOWN Medication List - Last Reconciled 04/21/24 by Rajeev Zapata MD amoxicillin-pot clavulanate 875-125 mg 1 tab PO BID 10 days aspirin 1 tab PO DAILY ferrous sulfate (Feosol) 325 mg PO DAILY levothyroxine 75 mcg PO DAILY Tobacco use date assessed: 04/20/24 Fall risk assessment: No Falls in past year Last assessed Fall Risk: 04/20/24 Dental Screening Dental Screen Date: 04/20/24 Did you have a dental visit in the last 12 months?: No Did you have a dental problem in the last 6 months where you did not have access to dental care?: No Was dental information given to patient?: Patient has dentist HPI Annual PE - due for cervical cancer screen HPI Details healthy [facility] Medical History Hypothyroidism Surgical History No pertinent past surgical history Family History Father No problems noted. Mother No problems noted. Social History Housing: House Alcohol intake: never Patient Tobacco Use Status: Never used Tobacco e-Cigarette/Vaping Use: Never Used Second Hand Smoke Exposure: No service: No Current occupational status: employed Current occupation: [employer] Cognitive needs: No Hearing needs: No Vision needs: Yes (glasses) Questionnaire PHQ-9 Over the last 2 weeks, how often have you been bothered by any of the following problems? 1. Little interest or pleasure in doing things: not at all 2. Feeling down, depressed, or hopeless: not at all 3. Trouble falling or staying asleep, or sleeping too much: not at all 4. Feeling tired or having little energy: not at all 5. Poor appetite or overeating: not at all 6. Feeling bad about yourself - or that you are a failure or have let yourself or your family down: not at all 7. Trouble concentrating on things, such as reading the newspaper or watching television: not at all 8. Moving or speaking so slowly that other people could have noticed. Or the opposite - being so fidgety or restless that you have been moving around a lot more than usual: not at all 9. Thoughts that you would be better off or of hurting yourself in some way: not at all Total score: 0 Depression Screening Interpretation: Negative Depression Screening Done: Yes 22272 - PHQ-9 Billing: Yes Source: Developed by Drs. Carlos Chaparro, Marcie Harris, Fabio Taylor and colleagues, with an educational paras from [employer]. Thrive Questionnaire Date Thrive assessed: 04/20/24 I am a: Patient What is your living situation today?: I have a steady place to live Within the past 12 months, did the food you bought not last and you didn't have the money to get more?: Never true Within the past 12 months, did you worry whether your food would run out before you got money to buy more?: Never true Do you have trouble paying for medicines?: No Do you have trouble getting transportation to medical appointments?: No Do you have trouble paying your heating and electricity bill?: No Do you have trouble taking care of your child, family member or friend?: No Do you have trouble with day-to-day activities such as bathing, preparing meals, shopping, managing finances, etc.?: No Are you currently unemployed and looking for a job?: No Are you interested in more education?: No Please select the resources that you would like help with: None Currently or been in a relationship where the following occur: no concerns reported THRIVE Score: 0 AUDIT C Alcohol Use Questionnaire (AUDIT-C) 1. How often do you have a drink containing alcohol?: Never Total Score: 0 Score Reviewed/Action Taken: Yes KALEIGH-7 AMB Questionnaire KALEIGH-7 Date KALEIGH - 7 assessed: 04/20/24 Feeling nervous, anxious, or on edge: 0 = Not at all Not being able to stop or control worryin = Not at all Worrying too much about different things: 0 = Not at all Trouble relaxin = Not at all Being so restless that it is hard to sit still: 0 = Not at all Becoming easily annoyed or irritable: 0 = Not at all Feeling afraid as if something awful might happen: 0 = Not at all Total KALEIGH-7 score (0-4 normal; 5-9 mild; 10-14 moderate; 15-21 severe): 0 Source: Developed by Drs. Carlos Chaparro, Marcie Harris, Fabio Taylor and colleagues, with an educational paras from [employer]. KALEIGH-7 Assessment Billing KALEIGH-7 Assessment Tool: KALEIGH-7 Assessment 54843 Review of Systems Const Denies chills, Denies fatigue, Denies headache(s) and Denies weight loss Eyes Denies change in vision, Denies diplopia and Denies eye pain ENT Denies vertigo, Denies dizziness, Denies headache(s) and Denies nasal discharge Card Denies chest pain, Denies rapid heart rate and Denies dyspnea on exertion Resp Denies chest congestion, Denies cough, Denies pain with cough and Denies dyspnea on exertion GI Denies abdominal pain, Denies hematochezia and Denies change in bowel habits Musc Denies myalgias, Denies arthralgias and Denies joint swelling Skin/Breast Denies lesions and Denies unusual bruising Neuro Denies vertigo, Denies dizziness, Denies headache(s) and Denies focal weakness Endo Denies fatigue Physical exam (Primary Care) Vital Signs: Last Vital Signs Pulse 63 04/20/24 13:47 BP 130/64 04/20/24 13:47 Pulse Ox 100 04/20/24 13:47 Oxygen Delivery Method Room Air 04/20/24 13:47 BMI result Body Mass Index 20.2 Tobacco/Smoking Status: Tobacco use Status Tobacco use date assessed 04/20/24 04/20/24 13:48 Patient Tobacco Use Status Never used Tobacco 04/20/24 13:48 e-Cigarette/Vaping Use Never Used 04/20/24 13:48 PHQ-9: PHQ-9 Score PHQ-9: Total score 0 04/20/24 13:48 Depression Screening Interpretation: Negative Thrive Assessment: Date of Thrive Assessment Date Thrive assessed 04/20/24 04/20/24 13:48 Currently or been in a relationship where the following occur: no concerns reported Const General: cooperative, healthy appearing and no acute distress Orientation/consciousness: oriented to person, oriented to place and oriented to time HENMT Head: Yes normal to inspection, Yes normocephalic and Yes atraumatic Mouth: Normal oral and palatal mucosa present and tongue normal Throat: Yes posterior oropharynx normal and Yes uvula midline Eyes General: appearance normal, both eyes and all related structures Neck Neck: Yes normal visual inspection, Yes full ROM and Yes no lymphadenopathy Thyroid: Thyroid normal Carotids: normal carotid upstroke Chest Chest palpation & inspection: normal inspection of the chest Resp Effort & Inspection: normal respiratory effort and able to speak in complete sentences Auscultation: clear to auscultation bilaterally Cardio Jugular venous distension: no JVD Palpation: normal PMI Rate: regular rate Rhythm: regular rhythm Heart sounds: S1 normal heart sound present and S2 normal heart sound present GI Inspection: Yes normal to inspection Palpation (GI): Soft to palpation and No hepatosplenomegaly present Auscultation: normal bowel sounds General: Yes no CVA tenderness Back/Spine/Pelvis Back: no CVA tenderness Skin General skin exam: no rashes or lesions noted Neuro General: oriented to person, oriented to place and oriented to time Extrem General: Yes normal to inspection and Yes full ROM Assessment and Plan Assessment & Plan (1) Physical exam: Code(s): Z00.00 - Encounter for general adult medical examination without abnormal findings Plan: stable; do labs Orders: Orders Thyroid Stimulating Hormone Today Z13.29 - Encounter for screening for other suspected endocrine disorder Comprehensive [place]. Panel Fast Today Z13.9 - Encounter for screening, unspecified Lipid Panel Today Z13.220 - Encounter for screening for lipoid disorders Complete Blood Count Auto Diff Today Z13.0 - Encounter for screening for diseases of the blood and blood-forming organs and certain disorders involving the immune mechanism Coding Level of Care Code Est Pt Prev Care 40-64y(80430) Diagnoses Physical exam Z00.00 Additional Codes KALEIGH-7 Assessment Billing - KALEIGH-7 Assessment Tool: KALEIGH-7 Assessment 05699 ([id number])
== END 2024-04-20 14:02 | disposition home or self-care (01) ==
PROVIDERS: PCP Internal Medicine; Visit Provider Internal Medicine
DX: Z00.00 Encounter for general adult medical examination without abnormal findings (principal)
CPT/HCPCS: 99396

== ENCOUNTER 2024-04-20 16:16 | Outpatient (REF) | payer OTHER, SELFPAY | END 2024-04-20 16:17 | disposition home or self-care (01) | LOC: HO.MAMMO 16:16 | PROVIDERS: PCP Internal Medicine; Visit Provider Internal Medicine | DX: Z12.31 Encounter for screening mammogram for malignant neoplasm of breast (principal) | CPT/HCPCS: 77063; 77067 ==

== ENCOUNTER → 2024-04-20 16:30 | Outpatient (BNV) | payer OTHER, SELFPAY | PROVIDERS: PCP Internal Medicine; Visit Provider Radiology Diagnostic Radiology | DX: Z12.31 Encounter for screening mammogram for malignant neoplasm of breast (principal) | CPT/HCPCS: 77063; 77067 ==

== ENCOUNTER 2025-04-26 16:30 | Outpatient (REF) | payer OTHER, SELFPAY | END 2025-04-26 16:31 | disposition home or self-care (01) | LOC: HO.MAMMO 16:30 | PROVIDERS: Visit Provider Internal Medicine | DX: Z12.31 Encounter for screening mammogram for malignant neoplasm of breast (principal) | CPT/HCPCS: 77063; 77067 ==

== ENCOUNTER → 2025-04-26 16:30 | Outpatient (BNV) | payer OTHER, SELFPAY | PROVIDERS: Visit Provider Internal Medicine | DX: Z12.31 Encounter for screening mammogram for malignant neoplasm of breast (principal) | CPT/HCPCS: 77063; 77067 ==

== ENCOUNTER 2025-09-10 16:00 | Outpatient (AMB) | payer OTHER, SELFPAY ==
[2025-09-10 16:21] VITALS: BP 128/74; PULSE 77; TEMP 36.3; O2SAT 97; BMI 21.2
--- NOTE | 2025-09-10 16:21 | A.OFFPC_ITS ---
Vital Signs 09/10/25 16:21 Height 5 ft 3 in Weight 119 lb 8 oz BMI 21.2 BP 128/74 Blood Pressure Location Lt brachial Position Sitting Pulse 77 Pulse Source Pulse Oximeter Temp 97.3 F Temp Source Temporal Artery Scan Pulse Oximetry (%) 97 Oxygen Delivery Method Room Air Intake Visit Reasons: annual exam/therese Dr Zapata Allergies No Known Allergies (NO KNOWN ALLERGIES) Allergy (Unknown, Verified 09/10/25 16:23) UNKNOWN Medication List - Last Reconciled 09/10/25 by Ahsan Hernández MD aspirin 1 tab PO DAILY ferrous sulfate (Feosol) 325 mg PO DAILY levothyroxine 75 mcg PO DAILY Tobacco use date assessed: 09/10/25 Fall risk assessment: No Falls in past year Last assessed Fall Risk: 09/10/25 Dental Screening Dental Screen Date: 09/10/25 Did you have a dental visit in the last 12 months?: Yes Did you have a dental problem in the last 6 months where you did not have access to dental care?: No Was dental information given to patient?: Patient has dentist [facility] Medical History Hypothyroidism Surgical History History of colonoscopy (~10/02/22) No pertinent past surgical history Family History Father No problems noted. Mother No problems noted. Social History Housing: House Alcohol intake: never Patient Tobacco Use Status: Never used Tobacco e-Cigarette/Vaping Use: Never Used Second Hand Smoke Exposure: No service: No Current occupational status: employed Current occupation: [employer] Cognitive needs: No Hearing needs: No Vision needs: Yes (glasses) Questionnaire PHQ-9 Over the last 2 weeks, how often have you been bothered by any of the following problems? 1. Little interest or pleasure in doing things: not at all 2. Feeling down, depressed, or hopeless: not at all 3. Trouble falling or staying asleep, or sleeping too much: not at all 4. Feeling tired or having little energy: not at all 5. Poor appetite or overeating: not at all 6. Feeling bad about yourself - or that you are a failure or have let yourself or your family down: not at all 7. Trouble concentrating on things, such as reading the newspaper or watching television: not at all 8. Moving or speaking so slowly that other people could have noticed. Or the opposite - being so fidgety or restless that you have been moving around a lot more than usual: not at all 9. Thoughts that you would be better off or of hurting yourself in some way: not at all Total score: 0 Depression Screening Interpretation: Negative Depression Screening Done: Yes 22144 - PHQ-9 Billing: Yes Source: Developed by Drs. Carlos Chaparro, Marcie Harris, Fabio Taylor and colleagues, with an educational paras from [employer]. Thrive Questionnaire Date Thrive assessed: 09/06/25 I am a: Patient What is your living situation today?: I have a steady place to live Within the past 12 months, did the food you bought not last and you didn't have the money to get more?: Never true Within the past 12 months, did you worry whether your food would run out before you got money to buy more?: Never true Do you have trouble paying for medicines?: No Do you have trouble getting transportation to medical appointments?: No Do you have trouble paying your heating and electricity bill?: No Do you have trouble taking care of your child, family member or friend?: No Do you have trouble with day-to-day activities such as bathing, preparing meals, shopping, managing finances, etc.?: No Are you currently unemployed and looking for a job?: No Are you interested in more education?: No Please select the resources that you would like help with: None THRIVE Score: 0 AUDIT C Alcohol Use Questionnaire (AUDIT-C) 1. How often do you have a drink containing alcohol?: Never 3. How often do you have six or more drinks on one occasion?: Never Total Score: 0 KALEIGH-7 AMB Questionnaire KALEIGH-7 Date KALEIGH - 7 assessed: 09/10/25 Feeling nervous, anxious, or on edge: 0 = Not at all Not being able to stop or control worryin = Not at all Worrying too much about different things: 0 = Not at all Trouble relaxin = Not at all Being so restless that it is hard to sit still: 0 = Not at all Becoming easily annoyed or irritable: 0 = Not at all Feeling afraid as if something awful might happen: 0 = Not at all Total KALEIGH-7 score (0-4 normal; 5-9 mild; 10-14 moderate; 15-21 severe): 0 Source: Developed by Drs. Carlos Chaparro, Marcie Harris, Fabio Taylor and colleagues, with an educational paras from [employer]. KALEIGH-7 Assessment Billing KALEIGH-7 Assessment Tool: KALEIGH-7 Assessment 04368 Review of Systems Const Denies poor appetite and Denies weakness Eyes Denies no additional complaints ENT Reports Normal hearing present, Denies dizziness, Denies nasal congestion, Denies tinnitus and Denies sore throat Card Denies chest pain, Denies syncope, Denies rapid heart rate and Denies dyspnea Resp Denies cough and Denies dyspnea GI Denies change in stool character, Reports constipation, Denies diarrhea, Denies nausea and Denies vomiting Denies urinary frequency, Denies difficulty voiding and Denies dysuria Neuro Reports Normal hearing present, Denies confusion, Denies dizziness, Denies syncope and Denies weakness Psych Denies confusion Physical exam (Primary Care) Vital Signs: Last Vital Signs Temp 97.3 F 09/10/25 16:21 Pulse 77 09/10/25 16:21 BP 128/74 09/10/25 16:21 Pulse Ox 97 09/10/25 16:21 Oxygen Delivery Method Room Air 09/10/25 16:21 BMI result Body Mass Index 21.2 Tobacco/Smoking Status: Tobacco use Status Tobacco use date assessed 09/10/25 09/10/25 16:24 Patient Tobacco Use Status Never used Tobacco 09/10/25 16:24 e-Cigarette/Vaping Use Never Used 09/10/25 16:24 PHQ-9: PHQ-9 Score PHQ-9: Total score 0 09/10/25 16:56 Depression Screening Interpretation: Negative Thrive Assessment: Date of Thrive Assessment Date Thrive assessed 09/06/25 09/10/25 16:24 Const General: No confusion Orientation/consciousness: No confusion HENMT Head: Yes normocephalic Ears: external ears normal and TM's normal bilaterally Face and sinus: Yes normal facial exam Mouth: moist mucous membranes Throat: Yes tonsils normal Eyes Conjunctivae: conjunctivae normal Pupils: Equal, round and reactive pupils present and Pupil accommodation reflex normal Direct Ophthalmoscopy: normal light reflex Neck Neck: No lymphadenopathy Thyroid: Thyroid normal Chest Chest palpation & inspection: normal inspection of the chest Resp Effort & Inspection: normal respiratory effort and no audible wheezes Auscultation: clear to auscultation bilaterally, no crackles, no wheezes and manuel ng sounds not diminished Cardio Rate: regular rate Rhythm: regular rhythm Peripheral pulses: radial pulses present and dorsalis pedis present GI Palpation (GI): no masses Auscultation: normal bowel sounds and normoactive bowel sounds Rectal Exam - Female: deferred Skin General skin exam: no rashes or lesions noted Rashes: no rashes Neuro General: No confusion Cranial nerves: Yes Equal, round and reactive pupils present and Yes Normal hearing present Cognition (Neuro): normal cognition Gait exam (Neuro): Normal gait present Motor exam (neuro): 5/5 motor strength present throughout Deep tendon reflexes (DTR's): Right brachioradialis reflex intensity grade: 2+, Left brachioradialis reflex intensity grade: 2+, Right patellar reflex intensity grade: 2+ and Left patellar reflex intensity grade: 2+ Extrem General: No edema Immunizations pneumoc 20-markus conj-dip cr(PF) 0.5 mL IM syringe Performing Provider: Ahsan Hernández MD Per[facility] Administered by: Marielena Yun CMA on 09/10/25 17:26 Dose Route Admin Location Dispensed Lot Number Expiration Date [facility] [employer] 0.5 mL IM Left Deltoid 0.5 mL [id number] 07/02/26 [employer] /[employer] Total Dispensed Waste 0.5 mL 0 % VIS Given Date VIS Provided VIS Publication Date 09/10/25 Single Vaccine 25 Eligibility Eligibility Date Funding Source Not [facility] Eligible 09/10/25 Private Coding Level of Care Code New Pt Prev Care >65yr (09185) Diagnoses Physical exam Z00.00 Diverticular disease K57.90 Hypothyroidism E03.9 Impaired glucose tolerance R73.02 Hypercholesterolemia E78.00 LFTs abnormal R79.89 Additional Codes KALEIGH-7 Assessment Billing - KALEIGH-7 Assessment Tool: KALEIGH-7 Assessment 56053 ([id number]) PHQ-9 - 18235 - PHQ-9 Billing: Yes ([id number]) Assessment & Plan Assessment & Plan (1) Physical exam: Code(s): Z00.00 - Encounter for general adult medical examination without abnormal findings Category: Medical Plan: Patient is advised to eat healthy, keep well hydrated, keep active and have adequate sleep. (2) Diverticular disease: Code(s): K57.90 - Diverticulosis of intestine, part unspecified, without perforation or abscess without bleeding Category: Medical Plan: High-fiber diet (3) Hypothyroidism: Code(s): E03.9 - Hypothyroidism, unspecified Category: Medical Plan: Continue with thyroid medication will need blood work (4) Impaired glucose tolerance: Code(s): R73.02 - Impaired glucose tolerance (oral) Category: Medical Plan: Decrease the amount of carbohydrate intake, pasta, bread, rice and potatoes are all sugar and that is aside from all the sweet stuff, remember that fruits are good but they are Sweet also. (5) Hypercholesterolemia: Code(s): E78.00 - Pure hypercholesterolemia, unspecified Category: Medical Plan: Avoid fried foods, chicken skin, eggs, butter margarine, pastries and meat. Be it pork or beef they have a lot of cholesterol LDL goal of less than 130 and triglyceride of less than 150 (6) LFTs abnormal: Code(s): R79.89 - Other specified abnormal findings of blood chemistry Category: Medical Plan: Will need repeat testing Plan History of Present Illness The patient is a 65-year-old female presenting for a wellness visit and to establish care for management of multiple chronic conditions. Her medical history includes hypothyroidism, iron deficiency anemia, diverticular disease, impaired glucose tolerance, and hypercholesterolemia. The patient had an ER visit for diverticulitis in March 2024. Her last blood work was in March 2024, which showed a normal blood count with mild thrombocytopenia, elevated blood sugar of 142, and elevated liver function tests. In 2022, her bad cholesterol was 188. An abdominal ultrasound in 2023 revealed a contracted gallbladder and normal liver size. Current medications include aspirin, iron, and levothyroxine. The patient reports taking aspirin because her started taking it after heart surgery. She has been taking ferrous gluconate for anemia but still feels cold and questions its efficacy, though her blood count has been normal for the last five years. The patient has no known drug allergies. Her last colonoscopy was in October 2022 and was negative. The patient's last mammogram was in April 2025 and was normal. She has not had a Pap smear in six to seven years. Her only reported surgery was a procedure after her first childbirth. She denies any history of lung problems, heart problems, stomach ulcers, or seizures. She does not drink alcohol or smoke. Health Maintenance A comprehensive wellness plan was discussed. Her colonoscopy and mammogram are up to date. She is overdue for a Pap smear, and a [employer] referral was offered for her to consider. For vaccinations, a pneumonia shot was administered during the visit. The shingles vaccine and an annual flu shot were also recommended. A high-fiber, healthy diet and continued physical activity were encouraged. Social History - Substance Use: Denies alcohol use and smoking. - Occupation: Works at a [employer]. - Physical Activity: Reports being physically active due to her job, including walking up four flights of stairs. - Diet: Does not drink coffee or tea. - Diet: Eats ice cream every night and enjoys spicy foods. - Diet: Does not eat a lot of red meat but eats chicken. - Marital Status: ; her had heart surgery. Review of Systems - Constitutional: Reports feeling cold all the time. - Denies fevers or syncope. - HEENT: Reports good hearing. - Reports floaters in her vision. - Denies problems with swallowing. - Cardiovascular: Denies chest pain, heaviness, or discomfort. - Respiratory: Reports a single episode of dyspnea on exertion after walking up four flights of stairs. - Denies waking up short of breath or coughing while eating. - Gastrointestinal: Reports good bowel movements. - Denies nausea, vomiting, heartburn, or constipation. - Genitourinary: Denies problems with urination or nocturia. - Neurological: Denies dizziness. - Skin: Reports developing tiny, pruritic red boils on the back of her neck after sun exposure. Physical Exam General: Cooperative, healthy appearing, comfortable, no acute distress and well developed Orientation: Patient oriented x3 Limitations: No limitations Head: Normal to inspection Ears: Hearing grossly normal bilaterally Nose: Normal external nose present Face and sinus: Normal facial exam Eyes: Appearance normal, both eyes and all related structures Neck: Normal visual inspection and Yes full ROM Respiratory: Normal respiratory effort and able to speak in complete sentences. Clear to auscultation bilaterally Cardiovascular: Regular rate and rhythm. Normal S1 and S2 GI: Normal to inspection. Soft to palpation and nontender Skin: No rashes or lesions noted, but patient reports tiny red boils on the neck after sun exposure Neuro: Patient oriented x3 Extremities: Normal to inspection Results - Labs from March 26, 2024: Complete blood count was normal and showed no anemia. - Platelet count was mildly low at 137,000/uL. - Electrolytes and kidney function were good. - Fasting blood sugar was elevated at 142 mg/dL. - Liver function tests were elevated at 123/154 U/L. - Labs from 2022: LDL cholesterol was elevated at 188 mg/dL. - Liver function tests were normal at 26/22 U/L. - Imaging: Abdominal ultrasound from 2023 showed a contracted gallbladder and normal liver size. - Procedures: A colonoscopy performed in October 2022 was negative. Plan Patient was informed and verbally consented to the use of an ambient scribe for clinic note documentation during this visit. 1. Elevated Liver Enzymes The patient's liver function tests were significantly elevated in March 2024 (123/154), which is a notable change from her normal results in 2022. The cause is unclear, with concerns for conditions such as fatty liver, given the patient's hypercholesterolemia, or hepatitis. A plan is in place to order fasting blood work, which will include a repeat liver function panel and a hepatitis profile, to investigate further. 2. Hyperglycemia The patient's fasting blood sugar was 142 mg/dL in March 2024, which is above the diagnostic threshold of 126 mg/dL for diabetes mellitus. The plan is to repeat a fasting blood glucose test to confirm the diagnosis. Dietary sources of sugar, including starches like pasta, bread, and rice, were discussed. 3. Hypercholesterolemia The patient's LDL cholesterol was 188 mg/dL in 2022, which is significantly higher than the target goal of less than 130 mg/dL. Repeat fasting cholesterol panel will be ordered to re-evaluate her lipid levels. The contribution of diet, including nightly ice cream, to her cholesterol levels was discussed. 4. Mild Thrombocytopenia Recent labs showed a mildly low platelet count of 137 K/uL. While not severe, this will be monitored. The patient was advised to stop her iron supplement to see if it affects the platelet count, which will be rechecked with the upcoming blood work. 5. Hypothyroidism The patient has a history of hypothyroidism and is on levothyroxine. Her thyroid medication dose was recently changed from 100 mcg to 75 mcg by her previous provider. She will continue her current thyroid medication, and a TSH level will be checked as part of her upcoming fasting blood work to ensure she is on the correct dose. 6. History Of Iron-Deficiency Anemia The patient takes an iron supplement but is not currently anemic, with normal blood counts for the past five years. It was recommended that she discontinue the iron supplement and focus on dietary sources of iron. She was also advised to stop taking aspirin, which she was using for primary prevention, to reduce the risk of bleeding. Discussion Notes I explained to the patient that this was our first visit, and I would be reviewing her medical history in detail. I expressed my concern about her significantly elevated liver enzymes on her March 2024 labs, contrasting with her normal results in 2022. I explained that we need to investigate this further with repeat blood work, including a hepatitis profile, and that fatty liver is a common cause. We discussed her recent fasting blood sugar of 142 mg/dL, which is in the diabetic range, and I explained the need to repeat the test for confirmation. I also reviewed her high LDL cholesterol from 2022 and the goal of getting it below 130 mg/dL. I ordered a fasting lab panel to re-evaluate her glucose, lipids, liver function, and thyroid levels, explaining the need for an 8-hour fast. Regarding her medications, I advised her to stop taking aspirin for primary prevention, explaining that current guidelines do not support its use due to the risk of stomach bleeding. I also recommended she discontinue iron supplements since she is not anemic and can obtain sufficient iron from her diet. For health maintenance, I explained she is due for a pneumonia vaccine, which I had administered today. I also recommended the shingles vaccine and the annual flu shot. I reassured the patient that I would follow up on her lab results and personally contact her with any significant abnormalities, after confirming her contact information. Patient Instructions - Get the fasting blood work that was ordered for you. - You must not eat or drink anything except sips of water for 8 hours before the test. - Continue taking your thyroid medication as prescribed, even on the morning of your blood test. - Stop taking daily aspirin. - Stop taking your iron pills. - Try to eat foods with iron, like spinach and other vegetables. - Eat a healthy diet with plenty of fiber. - Try to limit foods with a lot of sugar and starch, such as pasta, bread, rice, and sweets. - You received a pneumonia vaccine today. - It is recommended that you get a shingles vaccine, which is available at your pharmacy. - Plan to get your yearly flu shot in the fall. - We will make a follow-up appointment to discuss your lab results. - Please make sure the desk director has your correct phone number. Orders: Orders Hemoglobin A1c Today E78.00 - Pure hypercholesterolemia, unspecified Lipid Panel Today E78.00 - Pure hypercholesterolemia, unspecified Hepatitis B,C Profile Today E78.00 - Pure hypercholesterolemia, unspecified, R79.89 - Other specified abnormal findings of blood chemistry Ferritin Today E78.00 - Pure hypercholesterolemia, unspecified IRON PROFILE Today E78.00 - Pure hypercholesterolemia, unspecified Reticulocyte Count Today E78.00 - Pure hypercholesterolemia, unspecified UA CC w/rflx Micro + Cult Today E78.00 - Pure hypercholesterolemia, unspecified, R30.0 - Dysuria Comprehensive Met. Panel Today E78.00 - Pure hypercholesterolemia, unspecified Complete Blood Count Auto Diff Today E78.00 - Pure hypercholesterolemia, unspecified Free T4 (Free Thyroxine) Today E78.00 - Pure hypercholesterolemia, unspecified Thyroid Stimulating Hormone Today E78.00 - Pure hypercholesterolemia, unspecified Vitamin B12 and Folate Today E78.00 - Pure hypercholesterolemia, unspecified Vitamin D 25-OH Total Today E78.00 - Pure hypercholesterolemia, unspecified Pneumococcal 20 Immunization Today Z23 - Encounter for immunization
== END 2025-09-10 17:29 | disposition home or self-care (01) ==
LOC: HO.HMCH 16:00
PROVIDERS: PCP Internal Medicine; Visit Provider Internal Medicine
DX: Z00.00 Encounter for general adult medical examination without abnormal findings (principal); K57.90 Diverticulosis of intestine, part unspecified, without perforation or abscess without bleeding; E03.9 Hypothyroidism, unspecified; R73.02 Impaired glucose tolerance (oral); E78.00 Pure hypercholesterolemia, unspecified; R79.89 Other specified abnormal findings of blood chemistry; Z23 Encounter for immunization

== ENCOUNTER → 2025-09-10 16:00 | Outpatient (BNVA) | payer OTHER, SELFPAY | PROVIDERS: PCP Internal Medicine; Visit Provider Internal Medicine | DX: Z00.00 Encounter for general adult medical examination without abnormal findings (principal); K57.90 Diverticulosis of intestine, part unspecified, without perforation or abscess without bleeding; E03.9 Hypothyroidism, unspecified; R73.02 Impaired glucose tolerance (oral); E78.00 Pure hypercholesterolemia, unspecified; R79.89 Other specified abnormal findings of blood chemistry; R74.8 Abnormal levels of other serum enzymes; D69.6 Thrombocytopenia, unspecified; Z23 Encounter for immunization | CPT/HCPCS: 90471; 90677; 96127 ==